=== PATIENT | female | born 1950 | race Caucasian/White ===

== ENCOUNTER → 2019-05-26 | Outpatient (CLI) | payer BC, MEDICARE ==
--- NOTE | 2019-05-27 19:08 | PATHOLOGY ---
[facility] Accession Number: [id number] . 01 Material submitted: . PART A: breast - RIGHT BREAST NODULE 3:00 RETROAREOLAR. Modifiers: right, 3:00 PART B: breast - RIGHT BREAST NODULE 9:00 RETROAREOLAR. Modifiers: right, 9:00 . 01 Clinical history: . Right breast mass Right breast mass in duct x2 . 02 Diagnosis: A. 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 - There is no evidence of malignancy. . B. Breast biopsy "right breast nodule 9:00 retroareolar: - Fibrocystic changes. - There is no evidence of atypia or malignancy. (SHA/db; 05/27/2019) [facility] [place] 1311 Local . 02 Comment: This case is also reviewed by Dr. Vel Navas. (SHA:edelmira; 05/27/2019) . 02 Electronically signed: . Logan Johnson MD, Pathologist NPI- [id number] . 01 Gross description: . A. The specimen is received in formalin, labeled "Cassandra Hines, right breast 3:00 (retroareolar per requisition)" and consists of 3 needle cores of yellow-pink fibroadipose tissue measuring between 1.4 cm and 1.5 cm in length and 0.1-0.2 cm in diameter which are entirely submitted in A1-A2. The specimen was obtained at 10:11 AM on 05/26/2019 and placed in formalin at 10:11 AM. The cold ischemic time is less than 1 minute and the total formalin fixation time is greater than 6 hours less than 72 hours. . B. The specimen is received in formalin, labeled "Cassandra Hines, right breast 9:00 (retroareolar per requisition)" and consists of 3 needle cores of yellow-pink fibroadipose tissue measuring between 0.5 cm and 1.5 cm in length and 0.2 cm each in diameter. They are entirely submitted in B1-B2. The specimen was obtained at 10:31 AM on 05/26/2019 and placed in formalin at 10:31 AM. The cold ischemic time is less than 1 minute and the total formalin position time is greater than 6 hours but less than 72 hours. (SDY; 05/26/2019) SYU/SYU 05/26/2019 1644 Local . 02 Microscopic: . . . 02 Pathologist provided ICD-10: D24.1, N60.11 . 02 CPT . 831824, 528410 Specimen Comment: A courtesy copy of this report has been sent to Specimen Comment: [phone], , . Specimen Comment: Report sent to ,DR FRANZ / DR AMADOR Performed at: 01 [facility] [address], [place] [id number] MD William Pepper MD Phone: [phone] Performed at: 02 [facility] [address] [place], [place] [id number] MD Jatin Reyes MD Phone: [phone]
--- NOTE | 2019-05-28 09:01 | RAD ---
Examination: US GUID NDL PLACE/ASPI/BX, US GUID NDL PLACE/ASPI/BX, DIGITAL DIAGNOSTIC RT History: Right breast masses Comparison/Correlation: 05/02/2019 bilateral diagnostic mammographic exam, 05/02/2019 Limited right breast ultrasound exam Findings: Risks and benefits of ultrasound-guided core biopsies with clip marker placement were discussed with the patient and informed consent was obtained. Preliminary ultrasound imaging was performed. Cleansing with ChloraPrep was performed. Sterile gel and sterile probe cover were utilized. Sterile drapes were placed. Medial approach was utilized to biopsy the right breast 3:00 mass. Approximately 5 cc 1% lidocaine was administered. Scalpel incision was made. An introducer was placed. 14-gauge core biopsy needle was utilized with the bevel exposed and 3 passes were made. Samples were placed in the specimen jar. Clip marker was placed. Lateral approach was utilized to biopsy the right breast 9:00 intraductal mass. Approximately 5 cc 1% lidocaine was administered. Scalpel incision was made. An introducer was placed. 14-gauge core biopsy needle was utilized with the bevel exposed and 3 passes were made. Samples were placed in the specimen jar. Clip marker was placed. The patient tolerated procedure well without immediate complications. Right breast MLO and CC images were acquired. Clip marker is evident at the right upper outer aspect near the nipple and at the left lower inner aspect of the nipple. Heterogeneously dense breast parenchyma is seen. No loculated hematoma collection. Impression: Successful biopsy of the right breast 9:00 and 3:00 masses.
== END ==
LOC: US 08:52
PROVIDERS: ATTEND Surgery
DX: N63.10 Unspecified lump in the right breast, unspecified quadrant (principal); D24.1 Benign neoplasm of right breast; N60.11 Diffuse cystic mastopathy of right breast
CPT/HCPCS: 19083; 19084; 77065; 88305; C1713; 76942